=== PATIENT | male | born 1985 | race Caucasian/White ===

== ENCOUNTER 2020-01-23 20:49 | Emergency (ER) | payer BC ==
[2020-01-23 20:59] VITALS: BP 160/113
--- NOTE | 2020-01-23 21:34 | ER Document Report ---
ED Medical Screen (RME) - General Chief Complaint: Chest Tightness Stated Complaint: FEVER,CHEST TIGHTNESS Time Seen by Provider: 01/23/20 21:28 Mode of Arrival: Ambulatory Information source: Patient Notes: HPI; 34-year-old male presents to the emergency room complaining of intermittent fever since last night. Patient does work EMS. States his last positive COVID patient was approximately a month ago. Has not taken any medications for symptoms. States tonight he started with some tightness in his chest that is worse when he takes a deep breath he denies any trauma or injury. No nausea, no vomiting, no medications for symptoms. PE: Alert and oriented x3. Lungs: Clear to auscultation without rales, rhonchi, wheezes. Heart: Regular rate rhythm without murmurs, rubs, gallops. I have greeted and performed a rapid initial assessment of this patient. A comprehensive ED assessment and evaluation of the patient, analysis of test results and completion of the medical decision making process will be conducted by additional ED providers. I have specifically instructed the patient or family members with the patient to immediately return to any nursing staff should anything change in the patient's condition or with their chief complaint. TRAVEL OUTSIDE OF THE [place] IN LAST 30 DAYS: No Physical Exam - Vital signs Vitals: Temp Pulse Resp BP Pulse Ox 99.9 F 104 H 18 160/113 H 100 01/23/20 20:57 01/23/20 20:57 01/23/20 20:57 01/23/20 20:57 01/23/20 20:57 Course - Vital Signs Vital signs: Temp Pulse Resp BP Pulse Ox 99.9 F 104 H 18 160/113 H 100 01/23/20 20:57 01/23/20 20:57 01/23/20 20:57 01/23/20 20:57 01/23/20 20:57
[2020-01-23 22:56] LABS: ABSOLUTE NEUT (AUTO) 2.2 10^3/uL (1.7-8.2); TOTAL CELLS COUNTED % (AUTO) 100 %
[2020-01-23 23:14] LABS: ABSOLUTE LYMPHOCYTES (AUTO) 1.8 10^3/uL (0.5-4.7); ABSOLUTE MONOCYTES (AUTO) 0.5 10^3/uL (0.1-1.4); BASOPHILS % (AUTO) 0.4 % (0-2); EOSINOPHILS % (AUTO) 0.4 % (0-6); HEMATOCRIT 45.6 % (37.9-51.0); HEMOGLOBIN 16.1 g/dL (13.5-17.0); LYMPHOCYTES % (AUTO) 39.8 % (13-45); MEAN CORPUSCULAR HEMOGLOBIN 31.4 pg (27.0-33.4); MEAN CORPUSCULAR HGB CONC 35.3 g/dL (32.0-36.0); MEAN CORPUSCULAR VOLUME 89 fl (80-97); MONOCYTES % (AUTO) 10.1 % (3-13); PLATELET COUNT 192 10^3/uL (150-450); RED BLOOD COUNT 5.12 10^6/uL (4.35-5.55); RED CELL DISTRIBUTION WIDTH 12.8 % (11.5-14.0); SEGMENTED NEUTROPHILS % (AUTO) 49.3 % (42-78); WHITE BLOOD COUNT 4.4 10^3/uL (4.0-10.5)
--- NOTE | 2020-01-23 23:21 | RADIOLOGY REPORT (SQ) ---
EXAM DESCRIPTION: XR CHEST 1 VIEW COMPLETED DATE/TME: 01/23/2020 21:33 CLINICAL HISTORY: 34 years, Male, chest pain COMPARISON: None. NUMBER OF VIEWS: 1 TECHNIQUE: Portable chest LIMITATIONS: None. FINDINGS: Heart size normal. Right upper lobe airspace opacity. No pneumothorax IMPRESSION: Right upper lobe airspace opacity may reflect focal pneumonitis. Recommend follow-up to resolution copyright 2010 [employer]- All Rights Reserved
[2020-01-23 23:41] LABS: ALBUMIN 4.6 g/dL (3.5-5.0); ALKALINE PHOSPHATASE 67 U/L (38-126); ANION GAP 11 (5-19); ASPARTATE AMINO TRANSFERASE 47 U/L (17-59); BILIRUBIN,DIRECT 0.4 mg/dL (0.0-0.4); BILIRUBIN,TOTAL 0.8 mg/dL (0.2-1.3); BLOOD UREA NITROGEN 16 mg/dL (7-20); CALCIUM 9.4 mg/dL (8.4-10.2); CARBON DIOXIDE 27 mmol/L (22-30); CHLORIDE 101 mmol/L (98-107); CREATINE KINASE 61 U/L (55-170); GLUCOSE 111 mg/dL (75-110); TOTAL PROTEIN 8.1 g/dL (6.3-8.2)
[2020-01-23 23:42] LABS: CREATINE KINASE MB 0.28 ng/mL (<4.55)
[2020-01-23 23:43] LABS: TROPONIN I < 0.012 ng/mL
--- NOTE | 2020-01-24 08:45 | EKG REPORT ---
SEVERITY:- NORMAL ECG - SINUS RHYTHM : Confirmed by: Fede Potter MD 24-Jan-2020 08:44:34
== END 2020-01-24 01:40 | disposition left against medical advice (07) ==
LOC: ER 20:49
DX: R07.9 Chest pain, unspecified (principal); R50.9 Fever, unspecified; Z20.828 Contact with and (suspected) exposure to other viral communicable diseases
CPT/HCPCS: 36415; 71045; 80053; 82550; 82553; 84484; 85025; 93005; 93010; 99281